=== PATIENT | female | born 1990 | race African-American/Black ===

== ENCOUNTER 2023-10-04 01:33 | Emergency (ER) | payer SELFPAY ==
[2023-10-04] MEDS ORDERED: metroNIDAZOLE 500 MG TAB ONE (02:06)
[2023-10-06 03:16] LABS: Chlam.trachomatis by PCR,Urine Not Detected (NotDetected); GC N.gonorrhoeae PCR,UrineVOID Not Detected (NotDetected)
== END 2023-10-04 02:10 | disposition home or self-care (01) ==
LOC: CSHERS 01:33
DX: N76.0 Acute vaginitis (principal); E78.00 Pure hypercholesterolemia, unspecified
CPT/HCPCS: 87086; 87491; 87591; 99283